=== PATIENT | female | born 1955 | race Two or more races ===

== ENCOUNTER → 2016-09-20 | Emergency (ER) | payer OTHER ==
[~2016-09-20] VITALS: Ht 154.9 cm; Wt 81.6 kg
[~2016-09-20] MED LIST: IBUPROFEN600 MG ORAL; Methocarbamol 750mg tab ORAL ONE; ROBAXIN-750750 MG PO
[2016-09-20 07:00] VITALS: BP 134/72
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
--- NOTE | 2016-09-20 13:44 | Diagnostic Imaging Report ---
Indication: Chest pain Technique: Single AP view of the chest. Findings: Comparison: None. Silhouette enlarged. Aortic arch calcified. The bones and extra pulmonary soft tissues, remainder of the cardiomediastinal silhouette, pulmonary vasculature and parenchyma, and pleural surfaces are unremarkable. IMPRESSION: No evidence of acute cardiopulmonary disease Cardiomegaly Aortosclerosis.
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
== END | disposition home or self-care (01) ==
LOC: EDBD 05:26 → EMR 07:00
DX: Z04.1 Encounter for examination and observation following transport accident (principal); R07.9 Chest pain, unspecified; M79.631 Pain in right forearm
CPT/HCPCS: 71010; 93005; 99284